=== PATIENT | female | born 1970 | race Asian ===

== ENCOUNTER → 2021-05-27 | Outpatient (CLI) | payer BC | LOC: MC.RAD 04-19 10:15 | DX: Z12.31 Encounter for screening mammogram for malignant neoplasm of breast (principal) ==

== ENCOUNTER → 2023-09-20 | Outpatient (CLI) | payer BC | LOC: COL.RAD 15:22 | DX: E04.9 Nontoxic goiter, unspecified (principal) ==

== ENCOUNTER → 2023-12-20 | Outpatient (CLI) | payer BC | LOC: MC.RAD 13:30 | DX: Z12.31 Encounter for screening mammogram for malignant neoplasm of breast (principal) ==